=== PATIENT | male | born 1950 | race Caucasian/White ===

== ENCOUNTER → 2019-12-24 | Outpatient (CLI) | payer OTHER ==
[2019-12-24 12:12] LABS: BASO # 0.1 10*3/uL (0.0-0.1); BASO % 1.2 % (0.0-1.0); EOS # 0.3 10*3/uL (0.0-0.4); EOS % 2.7 % (1.0-4.0); HEMATOCRIT 53.5 % (42.0-52.0); LYMPH % 18.2 % (27.0-41.0); MEAN CELL VOLUME 96.2 fl (80.0-94.0); MEAN CORPUSCULAR HGB 31.8 pg (27.0-31.0); MEAN CORPUSCULAR HGB CONC 33.1 g/dl (33.0-37.0); MEAN PLATELET VOLUME 10.8 fl (9.6-12.3); MONO # 0.9 10*3/uL (0.1-1.0); MONO % 8.5 % (3.0-9.0); NEUT # 7.5 10*3/uL (2.3-7.9); PLATELET COUNT AUTOMATED 228 10*3/uL (130-400); RED BLOOD COUNT 5.56 10*6/uL (4.50-5.90); RED CELL DISTRI WIDTH 14.3 % (0-14.5); WHITE BLOOD COUNT 11.1 10*3/uL (4.8-10.8)
[2019-12-25 07:06] LABS: RHEUMATOID ARTHRITIS FACTOR 32.9 IU/mL (0.0-13.9)
[2019-12-25 08:08] LABS: HEP B CORE AB, IGM Negative (Negative); HEPATITIS B SURFACE AG Negative (Negative); HEPATITIS C VIRUS ANTIBODY <0.1 s/co (0.0-0.9)
[2019-12-25 13:09] LABS: ANTI-RNP ANTIBODIES 1.2 AI (0.0-0.9)
[2019-12-26 03:06] LABS: CCP ANTIBODIES IGG/IGA 5 units (0-19)
[2019-12-26 14:07] LABS: PTT-LA 37.5 sec (0.0-51.9)
[2019-12-27 08:11] LABS: DVVTMIXRFX CHG; LUPUS DRVVT 64.6 sec (0.0-47.0)
[2019-12-27 09:07] LABS: LUPUS REFLEX INTERPRETATION Comment: (.)
[2019-12-30 12:07] LABS: HLA-B27 ANTIGEN Negative (.)
== END | disposition home or self-care (01) ==
LOC: LAB 11:42
PROVIDERS: ATTEND Orthopaedic Surgery
DX: M19.90 Unspecified osteoarthritis, unspecified site (principal); M79.642 Pain in left hand; M79.641 Pain in right hand; R60.0 Localized edema